=== PATIENT | female | born 1945 | race Caucasian/White ===

== ENCOUNTER 2017-12-25 10:16 | Day surgery (SDC) | payer OTHER ==
[~2017-12-25 10:16] MED LIST: Buffered Lidocaine 0.9% SYRIN* 5 ML/SYR SYRINGE INTRADERM ONE
[2017-12-25] MEDS ORDERED: Lidocaine 1% INJ* 10 MG/ML 30 ML SDV ONE (11:27)
[2017-12-25] MEDS ORDERED: Lidocaine 2% PF * 5 ML VIAL ONE (11:27)
[2017-12-25] MEDS ORDERED: Lidocaine 2% JELLY* 20 ML (for OR use) ONE (11:28)
[2017-12-25] MEDS ORDERED: fentaNYL* 50 MCG/ML 2 ML VIAL (100 MCG VIAL) ONE (12:13)
[2017-12-25] MEDS ORDERED: Midazolam* 1 MG/ML 2 ML VIAL (2 MG) ONE (12:13)
[2017-12-25] MEDS ORDERED: Propofol* 10 MG/ML 20 ML BTL IV PUSH ONE (12:13)
[2017-12-25] MEDS ORDERED: Succinylcholine* 20 MG/ML 10 ML VIAL ONE (12:33)
[2017-12-25] MEDS ORDERED: Naloxone* 0.4 MG/ML 10 ML VIAL ONE (12:43)
[2017-12-25 13:35] VITALS: BP 166/98
[2017-12-25] MEDS ORDERED: Naloxone* 0.4 MG/ML 1 ML VIAL IV PRN (14:20)
[2017-12-25] MEDS ORDERED: Ondansetron INJ* 2 MG/ML VIAL IV PRN (14:20)
[2017-12-25] MEDS ORDERED: fentaNYL* 50 MCG/ML 2 ML VIAL (100 MCG VIAL) IV PRN (14:20)
--- NOTE | 2017-12-25 21:18 | PRO ---
BRONCHOSCOPY REPORT: DATE OF PROCEDURE: 12/25/17 PROCEDURE PERFORMED: Bronchoscopy for endobronchial inspection and bronchoalveolar lavage. PREPROCEDURAL DIAGNOSES: Chronic cough, thickening of right upper lobe bronchus. POSTPROCEDURAL DIAGNOSIS: ANESTHESIA: General anesthesia. ANESTHESIOLOGIST: Dr. Red. DESCRIPTION OF PROCEDURE: Informed consent was obtained from the patient prior to the procedure after all the risks and benefits were thoroughly explained. Appropriate time-out was performed and agreed on by attending staff. The patient was intubated with size 7.5 endotracheal tube. A flexible Olympus bronchoscope was inserted for airway inspection. Thick white secretions were noted and were suctioned out. No endobronchial lesions were obvious. Right upper lobe bronchus had 2 subsegmental bronchi with further branching. All airways were patent and open. No mucosal abnormality was noted. Thick white secretions were noted on both sides and were suctioned out. Bronchoalveolar lavage was obtained from right upper lobe and right middle lobe. Specimen was sent for microbiological and cytological examination. The bronchoscope was then withdrawn. The patient was extubated and seen in Recovery in optimal condition. No complications occurred during procedure. [id number] #: [id number] [facility]
== END 2017-12-25 13:57 | disposition home or self-care (01) ==
LOC: OR 10:16
PROVIDERS: ATTEND Internal Medicine
DX: J98.4 Other disorders of lung (principal); R05 Cough; E03.9 Hypothyroidism, unspecified; M85.80 Other specified disorders of bone density and structure, unspecified site
CPT/HCPCS: 87070; 87077; 87102; 87107; 87116; 87205; 87206; 88112; J0330; J2250; J2310; J2704; J3010